=== PATIENT | female | born 1950 | race Caucasian/White ===

== ENCOUNTER 2023-10-19 09:43 | Day surgery (SDC) | payer MEDICARE, BC ==
[2023-10-19 10:06] VITALS: RESP 16; TEMP 97.4
[2023-10-19] MEDS: LACTATED RINGERS 1,000 ML IV SCH (10:26)
[2023-10-19] MEDS: LACTATED RINGERS 1,000 ML IV ONE (10:26)
[2023-10-19] MEDS ORDERED: PROPOFOL 10 MG/ML 20 ML VIAL IV ONE (11:16)
--- NOTE | 2023-10-19 11:33 | P.PCN ---
Date of Procedure: 10/19/23 Procedure(s) Performed: BRIEF HISTORY: Patient is a 73-year-old pleasant white female scheduled for an elective colonoscopy as a part of evaluation by history of colon polyps. PROCEDURE PERFORMED: Colonoscopy. PREOPERATIVE DIAGNOSIS: History of colon polyps. IV sedation per Anesthesia. PROCEDURE: After informed consent was obtained, the patient, was brought into the endoscopy unit. IV sedation was administered by Anesthesia under continuous monitoring. Digital rectal examination was normal. Initially the Olympus CF-160 flexible video colonoscope was then inserted in the rectum, gradually advanced into the cecum without any difficulty. Careful examination was performed as the scope was gradually being withdrawn. Ileocecal valve and the appendiceal orifice were visualized and appeared normal. Prep was excellent. Mucosa of the cecum, ascending colon, transverse colon, descending colon, sigmoid colon, and rectum appeared normal. Scattered sigmoid diverticulosis retroflexion was performed in the rectum and no lesions were seen. The patient tolerated the procedure well. IMPRESSION: Normal-appearing colon from rectum to cecum with no evidence of colorectal neoplasia. Scattered sigmoid diverticulosis. RECOMMENDATIONS: Findings of this examination were discussed with the patient as well as her family. She was advised to have repeat screening colonoscopy at age 80..
[2023-10-19 12:00] VITALS: BP 118/73; PULSE 81
== END 2023-10-19 12:10 | disposition home or self-care (01) ==
LOC: ORWHC2ENDO 09:43
PROVIDERS: ATTEND Internal Medicine Gastroenterology
DX: Z12.11 Encounter for screening for malignant neoplasm of colon (principal); K57.30 Diverticulosis of large intestine without perforation or abscess without bleeding; E03.9 Hypothyroidism, unspecified; Z86.010 Personal history of colon polyps; Z79.890 Hormone replacement therapy
CPT/HCPCS: J2704; G0105